=== PATIENT | male | born 1970 | race Caucasian/White ===

== ENCOUNTER 2023-07-03 14:49 | Emergency (ER) | payer OTHER, SELFPAY ==
[2023-07-03 14:50] VITALS: BP 158/87; PULSE 102; RESP 18; TEMP 36.3; O2SAT 96
--- NOTE | 2023-07-03 16:31 | ED.SKABFB ---
HPI - Skin/Abscess/Foreign Bdy General Chief complaint: Skin/Abscess/Foreign Body <Shannon Dean PA-C - Last Filed: 07/03/23 18:39> Stated complaint: insect bite to R leg <Shannon Dean PA-C - Last Filed: 07/03/23 18:39> Time Seen by Provider: 07/03/23 15:55 <Shannon Dean PA-C - Last Filed: 07/03/23 18:39> History of Present Illness HPI narrative: 52-year-old male reports for evaluation for an itchy, painful, erythematous and swollen lesion to the medial aspect of his right ankle x48 hours. Patient states prior to the onset of symptoms, he was in his office and noticed a honeybee flying around the room. States he later felt a burning sensation in his ankle which she assumed was a bee sting. Patient states he never saw a stinger on his skin. States yesterday he began developing erythema and itchiness at the site and then today developed blisters over the lesion. He states that he believed he saw purulent drainage earlier today. He reports taking Benadryl and using topical steroids with improvement in pruritus. He denies other lesions or his body, off fevers, swelling to his lips or tongue. He has not had a reaction to bee stings in the past. He denies new exposures including poison vijaya, lotions or detergents. He does have a PCP. <Shannon Dean PA-C - Last Filed: 07/03/23 18:39> Related Data Allergies/Adverse reactions: Allergies Allergy/AdvReac Type Severity Reaction Status Date / Time amlodipine Allergy Swelling Verified 07/03/23 15:55 <Shannon Dean PA-C - Last Filed: 07/03/23 18:39> Review of Systems Review of Systems: CONSTITUTIONAL: Denies fever, chills EYES: Denies visual changes, redness, or discharge. ENT: Denies rhinorrhea, congestion, sore throat, or otalgia. CARDIOVASCULAR: Denies chest pain, palpitations, or edema. RESPIRATORY: Denies cough or dyspnea. GASTROINTESTINAL: Denies abdominal pain, nausea, vomiting, or diarrhea. GENITOURINARY: Denies dysuria or hematuria. SKIN: See HPI MUSCULOSKELETAL: Denies back pain, joint pain, or myalgia. NEUROLOGIC: Denies headache, numbness, dizziness, or weakness. PSYCHIATRIC: Denies anxiety or depression. <Shannon Dean PA-C - Last Filed: 07/03/23 18:39> Exam Narrative: GENERAL: Well-appearing, in no acute distress. HEAD: Normocephalic EYES: PERRLA ENT: Nares clear. Mucous membranes moist. Oropharynx without tonsillar hypertrophy exudate or other lesions. No lip or tongue swelling. NECK: Supple. CHEST: No respiratory distress. Clear to auscultation, no adventitious breath sounds. HEART: Regular rate and rhythm. No murmur heard. Normal peripheral pulses. ABDOMEN: Soft, nontender, normal active bowel sounds. EXTREMITIES: Normal range of motion. No edema. SKIN: 2 cm area of blanching erythema to the medial aspect of the right ankle with surrounding edema to the ankle. Mild amount of warmth over the lesion. There are a few tense vesicles with a mild amount of serous drainage. No crepitus, induration or fluctuation. No purulence. Negative Nikolsky's. Full ROM of ankle and toes. DP pulse 2+, cap refill <2. Sensation intact. NEURO: No focal deficits. Alert and oriented x3. PSYCH: Normal mood and affect. <Shannon Dean PA-C - Last Filed: 07/03/23 18:39> Course [employer] Physician Supervision I was consulted for advice regarding this patient's presentation and exam findings. A photo of patient's rash was shown to me. I agree with differential diagnosis and treatment plan as documented in the rest of the note but did not see patient in person while in the department. <Jojo Chou MD - Last Filed: 07/04/23 00:59> Vital Signs Vital signs: Vital Signs Temperature 97.3 F L 07/03/23 14:50 Pulse Rate 102 H 07/03/23 14:50 Respiratory Rate 18 07/03/23 14:50 Blood Pressure 158/87 H 07/03/23 14:50 Pulse Oximetry 96 07/03/23 14:50 Oxygen Delivery Room Air 07/03/23 14:50
[2023-07-03] MEDS: CEPHALEXIN 500 MG CAPSULE PO (16:49)
[2023-07-03 16:57] VITALS: BP 150/78; PULSE 87; RESP 15; O2SAT 98
== END 2023-07-03 16:58 | disposition home or self-care (01) ==
PROVIDERS: Emergency Provider Physician Assistant
DX: L23.9 Allergic contact dermatitis, unspecified cause (principal); L03.115 Cellulitis of right lower limb
CPT/HCPCS: 96372; 99283; A9270; J1100